=== PATIENT | male | born 1955 | race Hispanic/Latino ===

== ENCOUNTER 2017-09-14 01:08 | Emergency (ER) | payer MEDICARE ==
[~2017-09-14 01:08] MED LIST: AMOX500C2 PO; ASPI-1005 PO; ATOR20TA65 PO; CEPH500C2 PO; CILO50TA PO; FOLI0.8T22 PO; GLIP5TAB11 PO; PHOSLOC PO; SEVE800 PO
[2017-09-14 01:46] LABS: BASOPHILS % (AUTO) 1.7 % (0.0-5.0); EOSINOPHILS % (AUTO) 6.1 % (0.0-8.0); HEMATOCRIT 29.9 % (42-54); LYMPHOCYTES % (AUTO) 19.4 % (21.0-51.0); MEAN CORPUSCULAR HEMOGLOBIN 31.3 pg (27.0-33.0); MEAN CORPUSCULAR HGB CONC 33.7 g/dL (32.0-36.0); MEAN CORPUSCULAR VOLUME 92.9 fL (79-99); MONOCYTES % (AUTO) 10.6 % (3.0-13.0); NEUTROPHILS % (AUTO) 62.2 % (40.0-77.0); NUCLEATED RED BLOOD CELLS 0.1 % (0.0-0.19); PLATELET COUNT (AUTO) 130 K/uL (130-400); RED BLOOD CELL COUNT(AUTO) 3.22 MIL/uL (4.50-6.20); RED CELL DISTRIBUTION WIDTH 14.6 % (11.0-15.5); WHITE BLOOD COUNT (AUTO) 7.4 K/uL (4.8-10.8)
[2017-09-14 01:59] LABS: ALBUMIN 3.5 g/dL (3.5-5.0); BILIRUBIN,TOTAL 0.7 mg/dL (0.2-1.0); POTASSIUM 3.9 mmol/L (3.5-5.1); TOTAL PROTEIN, SERUM 7.5 g/dL (6.0-8.3)
[2017-09-14 02:05] LABS: CREATININE 9.6 mg/dL (0.5-1.5)
[2017-09-14] MEDS ORDERED: CLONIDINE HCL 0.1 MG TABLET ONE (02:33)
== END 2017-09-14 02:25 | disposition home or self-care (01) ==
LOC: EDH 01:08
DX: I12.0 Hypertensive chronic kidney disease with stage 5 chronic kidney disease or end stage renal disease (principal); N18.6 End stage renal disease; E11.22 Type 2 diabetes mellitus with diabetic chronic kidney disease; Z99.2 Dependence on renal dialysis; Z88.8 Allergy status to other drugs, medicaments and biological substances; Z89.421 Acquired absence of other right toe(s)
CPT/HCPCS: 36415; 80053; 82550; 84484; 85025; 93005

== ENCOUNTER 2017-09-19 22:54 | Emergency (ER) | payer MEDICARE ==
[2017-09-19 23:14] LABS: BASOPHILS % (AUTO) 0.9 % (0.0-5.0); EOSINOPHILS % (AUTO) 4.9 % (0.0-8.0); HEMATOCRIT 29.6 % (42-54); LYMPHOCYTES % (AUTO) 19.4 % (21.0-51.0); MEAN CORPUSCULAR HEMOGLOBIN 31.2 pg (27.0-33.0); MEAN CORPUSCULAR HGB CONC 33.5 g/dL (32.0-36.0); MEAN CORPUSCULAR VOLUME 93.1 fL (79-99); NEUTROPHILS % (AUTO) 62.8 % (40.0-77.0); PLATELET COUNT (AUTO) 118 K/uL (130-400); RED BLOOD CELL COUNT(AUTO) 3.18 MIL/uL (4.50-6.20); RED CELL DISTRIBUTION WIDTH 14.7 % (11.0-15.5); WHITE BLOOD COUNT (AUTO) 7.2 K/uL (4.8-10.8)
[2017-09-19 23:23] LABS: POTASSIUM 4.2 mmol/L (3.5-5.1)
[2017-09-19 23:36] LABS: ALBUMIN 3.6 g/dL (3.5-5.0); BILIRUBIN,TOTAL 0.7 mg/dL (0.2-1.0); CREATINE KINASE MB 0.6 ng/mL (0.5-3.6); TOTAL PROTEIN, SERUM 7.3 g/dL (6.0-8.3)
== END 2017-09-20 03:12 | disposition home or self-care (01) ==
LOC: EDH 22:54
DX: E11.22 Type 2 diabetes mellitus with diabetic chronic kidney disease (principal); R00.2 Palpitations; I12.0 Hypertensive chronic kidney disease with stage 5 chronic kidney disease or end stage renal disease; N18.6 End stage renal disease; Z99.2 Dependence on renal dialysis; Z88.8 Allergy status to other drugs, medicaments and biological substances
CPT/HCPCS: 36415; 71045; 80053; 82550; 82553; 84484; 85025; 93005

== ENCOUNTER 2017-10-22 21:59 | Emergency (ER) | payer MEDICARE ==
[2017-10-22] MEDS ORDERED: ONDANSETRON HCL 4 MG/2 ML VIAL ONE (22:25)
[2017-10-22] MEDS ORDERED: ASPIRIN 325 MG TABLET ONE (22:25)
[2017-10-22 22:57] LABS: BASOPHILS % (AUTO) 0.8 % (0.0-5.0); EOSINOPHILS % (AUTO) 3.7 % (0.0-8.0); HEMATOCRIT 28.9 % (42-54); LYMPHOCYTES % (AUTO) 25.5 % (21.0-51.0); MEAN CORPUSCULAR HEMOGLOBIN 30.8 pg (27.0-33.0); MEAN CORPUSCULAR HGB CONC 33.7 g/dL (32.0-36.0); MEAN CORPUSCULAR VOLUME 91.5 fL (79-99); MONOCYTES % (AUTO) 12.8 % (3.0-13.0); NEUTROPHILS % (AUTO) 57.2 % (40.0-77.0); PLATELET COUNT (AUTO) 125 K/uL (130-400); RED BLOOD CELL COUNT(AUTO) 3.15 MIL/uL (4.50-6.20); RED CELL DISTRIBUTION WIDTH 15.2 % (11.0-15.5)
[2017-10-22 23:07] LABS: CREATININE 8.5 mg/dL (0.5-1.5)
[2017-10-22 23:52] LABS: B-TYPE NATRIURETIC PEPTIDE 1860 pg/mL (0-100)
== END 2017-10-23 00:01 | disposition home or self-care (01) ==
LOC: EDH 21:59
DX: I13.2 Hypertensive heart and chronic kidney disease with heart failure and with stage 5 chronic kidney disease, or end stage renal disease (principal); E11.22 Type 2 diabetes mellitus with diabetic chronic kidney disease; N18.6 End stage renal disease; M19.90 Unspecified osteoarthritis, unspecified site; Z98.890 Other specified postprocedural states; Z88.8 Allergy status to other drugs, medicaments and biological substances; Z99.2 Dependence on renal dialysis
CPT/HCPCS: 36415; 71045; 80048; 83880; 84484; 85025; 93005; 96374; 99285; J2405

== ENCOUNTER 2019-08-04 22:36 | Emergency (ER) | payer MEDICARE ==
[2019-08-04] MEDS ORDERED: ASPIRIN 325 MG TABLET ONE (22:51)
[2019-08-04 22:56] LABS: BASOPHILS % (AUTO) 0.3 % (0.0-5.0); HEMATOCRIT 34.4 % (42-54); MEAN CORPUSCULAR HEMOGLOBIN 31.8 pg (27.0-33.0); MEAN CORPUSCULAR HGB CONC 33.1 g/dL (32.0-36.0); MEAN CORPUSCULAR VOLUME 96.1 fL (79-99); MONOCYTES % (AUTO) 12.7 % (3.0-13.0); NEUTROPHILS % (AUTO) 57.7 % (40.0-77.0); PLATELET COUNT (AUTO) 134 K/uL (130-400); RED BLOOD CELL COUNT(AUTO) 3.58 MIL/uL (4.50-6.20); RED CELL DISTRIBUTION WIDTH 12.8 % (11.0-15.5); WHITE BLOOD COUNT (AUTO) 8.8 K/uL (4.8-10.8)
[2019-08-04 23:18] LABS: ALBUMIN 4.3 g/dL (3.5-5.0); BILIRUBIN,TOTAL 0.6 mg/dL (0.2-1.0); POTASSIUM 3.8 mmol/L (3.5-5.1); TOTAL PROTEIN, SERUM 7.8 g/dL (6.0-8.3)
[2019-08-04 23:30] LABS: CREATININE 10.4 mg/dL (0.5-1.5)
== END 2019-08-05 00:19 | disposition home or self-care (01) ==
LOC: EDH 22:36
DX: R07.89 Other chest pain (principal); F41.9 Anxiety disorder, unspecified; R21 Rash and other nonspecific skin eruption; M19.90 Unspecified osteoarthritis, unspecified site; I12.0 Hypertensive chronic kidney disease with stage 5 chronic kidney disease or end stage renal disease; E11.22 Type 2 diabetes mellitus with diabetic chronic kidney disease; N18.6 End stage renal disease; Z88.8 Allergy status to other drugs, medicaments and biological substances; Z99.2 Dependence on renal dialysis
CPT/HCPCS: 36415; 71045; 80053; 84484; 85025; 93005

== ENCOUNTER → 2023-04-20 | Outpatient (CLI) | payer MEDICARE ==
[~2023-04-20] MED LIST changes: -CILO50TA PO; +CILO50TA2 PO
== END | disposition home or self-care (01) ==
LOC: SHCH 14:09
PROVIDERS: ATTEND Internal Medicine Cardiovascular Disease
DX: I73.9 Peripheral vascular disease, unspecified (principal); E78.5 Hyperlipidemia, unspecified; I25.10 Atherosclerotic heart disease of native coronary artery without angina pectoris; I12.0 Hypertensive chronic kidney disease with stage 5 chronic kidney disease or end stage renal disease; N18.6 End stage renal disease; R22.43 Localized swelling, mass and lump, lower limb, bilateral
CPT/HCPCS: 93970

== ENCOUNTER → 2023-06-01 | Outpatient (CLI) | payer MEDICARE ==
[~2023-06-01] MED LIST changes: -GLIP5TAB11 PO; +GLIP5TAB15 PO
[2023-06-01 12:20] LABS: BASOPHILS # (AUTO) 0.04 K/uL (0.00-0.20); EOSINOPHILS # (AUTO) 0.16 K/uL (0.00-0.70); EOSINOPHILS % (AUTO) 4.2 % (0.0-8.0); HEMATOCRIT 33.7 % (42-54); IMMATURE GRANULOCYTE ABSOLUTE 0.01 K/uL (0-1); LYMPHOCYTES # (AUTO) 1.3 K/uL (1.0-4.8); LYMPHOCYTES % (AUTO) 34.8 % (21.0-51.0); MEAN CORPUSCULAR HGB CONC 32.9 g/dL (32.0-36.0); MEAN CORPUSCULAR VOLUME 100.3 fL (79-99); MONOCYTES # (AUTO) 0.6 K/uL (0.1-1.0); MONOCYTES % (AUTO) 16.8 % (3.0-13.0); NEUTROPHILS # (AUTO) 1.6 K/uL (1.8-7.7); NEUTROPHILS % (AUTO) 42.9 % (40.0-77.0); PLATELET COUNT (AUTO) 91 K/uL (130-400); RED BLOOD CELL COUNT(AUTO) 3.36 MIL/uL (4.50-6.20); WHITE BLOOD COUNT (AUTO) 3.8 K/uL (4.8-10.8)
[2023-06-01 12:22] LABS: INR 1.03 (0.85-1.15); PROTHROMBIN TIME 11.9 SEC (9.6-11.6)
[2023-06-01 12:24] LABS: POTASSIUM 3.4 mmol/L (3.5-5.1)
== END | disposition home or self-care (01) ==
LOC: LAB 10:08
PROVIDERS: ATTEND Internal Medicine Cardiovascular Disease
DX: I73.9 Peripheral vascular disease, unspecified (principal); I12.0 Hypertensive chronic kidney disease with stage 5 chronic kidney disease or end stage renal disease; N18.6 End stage renal disease; I87.2 Venous insufficiency (chronic) (peripheral); I87.1 Compression of vein; E78.5 Hyperlipidemia, unspecified; I25.10 Atherosclerotic heart disease of native coronary artery without angina pectoris; R60.9 Edema, unspecified; E66.9 Obesity, unspecified; Z68.31 Body mass index [BMI] 31.0-31.9, adult; Z99.2 Dependence on renal dialysis
CPT/HCPCS: 36415; 80048; 85025; 85610; 85730

== ENCOUNTER → 2023-08-24 | Outpatient (CLI) | payer MEDICARE ==
[2023-08-24 16:41] LABS: BASOPHILS # (AUTO) 0.01 K/uL (0.00-0.20); BASOPHILS % (AUTO) 0.1 % (0.0-5.0); EOSINOPHILS # (AUTO) 0.17 K/uL (0.00-0.70); EOSINOPHILS % (AUTO) 1.6 % (0.0-8.0); HEMATOCRIT 35.1 % (42-54); IMMATURE GRANULOCYTE ABSOLUTE 0.08 K/uL (0-1); LYMPHOCYTES # (AUTO) 1.1 K/uL (1.0-4.8); LYMPHOCYTES % (AUTO) 10.3 % (21.0-51.0); MEAN CORPUSCULAR HEMOGLOBIN 34.1 pg (27.0-33.0); MEAN CORPUSCULAR HGB CONC 33.6 g/dL (32.0-36.0); MEAN CORPUSCULAR VOLUME 101.4 fL (79-99); MONOCYTES # (AUTO) 1.4 K/uL (0.1-1.0); MONOCYTES % (AUTO) 13.2 % (3.0-13.0); NEUTROPHILS # (AUTO) 7.7 K/uL (1.8-7.7); PLATELET COUNT (AUTO) 88 K/uL (130-400); RED BLOOD CELL COUNT(AUTO) 3.46 MIL/uL (4.50-6.20); RED CELL DISTRIBUTION WIDTH 13.4 % (11.0-15.5); WHITE BLOOD COUNT (AUTO) 10.5 K/uL (4.8-10.8)
[2023-08-24 17:01] LABS: INR 0.94 (0.85-1.15)
[2023-08-24 17:02] LABS: PARTIAL THROMBOPLASTIN TIME 25.1 SEC (26.3-35.5)
[2023-08-24 17:03] LABS: CREATININE 5.7 mg/dL (0.5-1.5); POTASSIUM 4.4 mmol/L (3.5-5.1)
== END | disposition home or self-care (01) ==
LOC: LAB 15:40
PROVIDERS: ATTEND Internal Medicine Cardiovascular Disease
DX: I87.1 Compression of vein (principal); I10 Essential (primary) hypertension; I73.9 Peripheral vascular disease, unspecified; E78.5 Hyperlipidemia, unspecified; I25.10 Atherosclerotic heart disease of native coronary artery without angina pectoris; M79.89 Other specified soft tissue disorders
CPT/HCPCS: 36415; 80048; 85025; 85610; 85730

== ENCOUNTER → 2023-11-12 | Outpatient (CLI) | payer MEDICARE ==
[2023-11-12] MEDS: REGADENOSON 0.4 MG/5 ML PF SYG IVP ONE (13:54)
== END | disposition home or self-care (01) ==
LOC: SHCH 07:39
PROVIDERS: ATTEND Internal Medicine Cardiovascular Disease
DX: R07.9 Chest pain, unspecified (principal); R06.09 Other forms of dyspnea; I45.10 Unspecified right bundle-branch block
CPT/HCPCS: 78452; 96374; 93017; J2785; A9500 ×2

== ENCOUNTER → 2024-03-23 | Outpatient (CLI) | payer MEDICARE ==
[~2024-03-23] MED LIST changes: +ACET-2079 PO; -AMOX500C2 PO; -ASPI-1005 PO; -ATOR20TA65 PO; -CEPH500C2 PO; -CILO50TA2 PO; -FOLI0.8T22 PO; +FOLI1TAB85 PO; +FOSF3PAC4 PO; -GLIP5TAB15 PO; +METO-408 PO; +RIVA2.5T PO; +ROSU20TA73 PO; -SEVE800 PO; +[UNRECOGNIZED DRUG - OTHER] PO
== END | disposition home or self-care (01) ==
LOC: SHCH 14:32
PROVIDERS: ATTEND Internal Medicine Cardiovascular Disease
DX: I73.9 Peripheral vascular disease, unspecified (principal)
CPT/HCPCS: 93925

== ENCOUNTER → 2024-04-19 | Outpatient (CLI) | payer MEDICARE | END | disposition home or self-care (01) | LOC: SHCH 09:38 | PROVIDERS: ATTEND Internal Medicine Cardiovascular Disease | DX: I87.2 Venous insufficiency (chronic) (peripheral) (principal) | CPT/HCPCS: 93970 ==

== ENCOUNTER → 2024-06-16 | Outpatient (CLI) | payer MEDICARE ==
[~2024-06-16] MED LIST changes: -ROSU20TA73 PO; +ROSU20TA98 PO
[2024-06-16 12:24] LABS: POTASSIUM 3.8 mmol/L (3.5-5.1)
== END | disposition home or self-care (01) ==
LOC: LAB 09:26
PROVIDERS: ATTEND Internal Medicine Cardiovascular Disease
DX: I10 Essential (primary) hypertension (principal)
CPT/HCPCS: 36415; 80048

== ENCOUNTER → 2024-06-21 | Outpatient (CLI) | payer MEDICARE ==
[~2024-06-21] MED LIST changes: +IOHEXOL 350 MG/ML 100ML INFUS..BTL IV ONE
== END | disposition home or self-care (01) ==
LOC: RAH 10:54
PROVIDERS: ATTEND Internal Medicine Cardiovascular Disease
DX: I25.10 Atherosclerotic heart disease of native coronary artery without angina pectoris (principal); I50.20 Unspecified systolic (congestive) heart failure; I25.5 Ischemic cardiomyopathy
CPT/HCPCS: 75574; Q9967

== ENCOUNTER 2024-10-03 07:04 | Day surgery (SDC) | payer MEDICARE ==
[2024-09-29 13:08] LABS: BASOPHILS # (AUTO) 0.05 K/uL (0.00-0.20); EOSINOPHILS # (AUTO) 0.07 K/uL (0.00-0.70); EOSINOPHILS % (AUTO) 1.4 % (0.0-8.0); HEMATOCRIT 43.8 % (42-54); IMMATURE GRANULOCYTE ABSOLUTE 0.02 K/uL (0-1); LYMPHOCYTES # (AUTO) 0.8 K/uL (1.0-4.8); MEAN CORPUSCULAR HEMOGLOBIN 34.4 pg (27.0-33.0); MEAN CORPUSCULAR HGB CONC 32.4 g/dL (32.0-36.0); MEAN CORPUSCULAR VOLUME 106.1 fL (79-99); MONOCYTES # (AUTO) 0.9 K/uL (0.1-1.0); MONOCYTES % (AUTO) 17.2 % (3.0-13.0); NEUTROPHILS # (AUTO) 3.3 K/uL (1.8-7.7); PLATELET COUNT (AUTO) 79 K/uL (130-400); RED BLOOD CELL COUNT(AUTO) 4.13 MIL/uL (4.50-6.20); RED CELL DISTRIBUTION WIDTH 13.8 % (11.0-15.5); WHITE BLOOD COUNT (AUTO) 5.1 K/uL (4.8-10.8)
[2024-09-29 13:09] VITALS: BP 153/74; PULSE 76; RESP 18; TEMP 98
[2024-09-29 13:19] LABS: INR 1.13 (0.85-1.15); PROTHROMBIN TIME 12.5 SEC (9.6-11.6)
[2024-09-29 13:20] LABS: PARTIAL THROMBOPLASTIN TIME 29.3 SEC (26.3-35.5)
[2024-09-29 13:21] LABS: CREATININE 5.5 mg/dL (0.5-1.3); POTASSIUM 4.1 mmol/L (3.5-5.1)
[2024-09-29 13:44] LABS: B-TYPE NATRIURETIC PEPTIDE 4530 pg/mL (0-100)
--- NOTE | 2024-09-29 17:25 | EKG ---
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
--- NOTE | 2024-10-02 09:29 | NUR ---
REPORT REPORTED PLATELETS/BNP TO MOLLY STALEY NP. OK TO PROCEED
[~2024-10-03] VITALS: Ht 167.6 cm; Wt 88.1 kg
[2024-10-03] VITALS (10 sets, daily range): BP systolic 133–153; BP diastolic 53–79; PULSE 62–74; RESP 16–21; TEMP 97.2–98.2
[~2024-10-03 07:04] MED LIST changes: -ACET-2079 PO; +ASPI-1443 PO; -FOSF3PAC4 PO; -IOHEXOL 350 MG/ML 100ML INFUS..BTL IV ONE; -METO-408 PO; -PHOSLOC PO; -RIVA2.5T PO; -ROSU20TA98 PO; +SUCR500T PO; -[UNRECOGNIZED DRUG - OTHER] PO
--- NOTE | 2024-10-03 08:17 | HMCIMG ---
CHEST 1VW HISTORY: Preop COMPARISON: 02/17/2024 FINDINGS: A frontal projection of the chest was obtained. Mild bilateral pulmonary infiltrates are seen may be related to mild pulmonary vascular congestion with possible superimposed pneumonitis. The heart is borderline enlarged. Degenerative changes are seen. Aortic calcifications are seen. IMPRESSION: 1. Mild bilateral pulmonary infiltrates are seen may be related to mild pulmonary vascular congestion with possible superimposed pneumonitis.
[2024-10-03] MEDS ORDERED: CINA30 PO (08:30)
[2024-10-03] MEDS ORDERED: LACT10SO9 PO (08:30)
[2024-10-03] MEDS: 0.9%NACL 1000ML 1,000 ML IV SCH (08:51)
[2024-10-03] MEDS ORDERED: LIDOCAINE HCL 400MG/20ML VIAL ONE (09:43)
[2024-10-03] MEDS ORDERED: HEParin-NS 1,000 UNIT/500 ML 1,000 ML IV ONE (09:44)
[2024-10-03] MEDS ORDERED: NITROGLYCERIN 50MG VIAL ONE (09:44)
[2024-10-03] MEDS ORDERED: IOHEXOL-350 75 ML VIAL IV ONE (09:44)
--- NOTE | 2024-10-03 10:39 | PRN ---
Cath Procedure Report CATH PROCEDURE REPORT CARDIAC CATHETERIZATION REPORT Date of Service: Oct 03, 2024 After informed consent the patient was prepped and draped in the usual fashion. He received a total of 14 cc of 2% xylocaine in the right inguinal area. A six Dominican sheath was introduced into the right femoral artery using modified Seldinger technique. A six Dominican pigtail catheter was advanced over guidewire to the aortic root. Wire was removed after crossing the aortic valve. Hemodynamics were measured. Left ventricular end-diastolic pressure was 25 mm Hg so no ventriculogram was performed. Pullback with continuous hemodynamic monitoring was performed and catheter was removed. A Rick four right six Dominican diagnostic catheter was advanced over guidewire to the aortic root. Wire was removed and catheter engaged as the [place] right coronary artery. The right coronary artery was visualized multiple planes the catheter was removed. A Rick four left six Dominican diagnostic catheter was advanced over guidewire to the aortic root. Wire was removed and catheter engaged into the left main coronary artery. The left coronary system was visualized multiple planes the catheter was removed. A sheathogram was performed and six Dominican Angio-Seal closure device applied. The entire procedure was well tolerated without complications. Findings: The patient's CT coronary angiogram had suggested a greater than 70% stenosis in the proximal LAD. Catheterization however demonstrated a normal left main coronary artery. Left anterior descending artery is a widely patent vessel extending around the apex of the heart. The diagonal 1st and 2nd are both free of obstruction. The circumflex artery is a nondominant vessel free of obstruction gives rise to two normal obtuse marginal arteries. The right coron shikha artery is a right-dominant vessel free of obstruction. It gives rise to a large posterolateral branch free of obstruction and a moderate-sized posterior descending artery free of obstruction. There was no evidence of aortic stenosis. Summary: Dilated cardiomyopathy with normal coronary arteries. Optimize medical management advised. Plan on repeating echo in 90 days. Report dictated by BRIGITTE Jasmine MD, MD Oct 03, 2024 10:39
[2024-10-03] MEDS ORDERED: METO-408 PO (11:17)
[2024-10-03] MEDS ORDERED: LOSA25TA41 PO (11:18)
== END 2024-10-03 15:00 ==
LOC: DAH 07:04
PROVIDERS: ATTEND Internal Medicine Cardiovascular Disease
DX: R94.39 Abnormal result of other cardiovascular function study (principal); I25.118 Atherosclerotic heart disease of native coronary artery with other forms of angina pectoris; I13.2 Hypertensive heart and chronic kidney disease with heart failure and with stage 5 chronic kidney disease, or end stage renal disease; I50.22 Chronic systolic (congestive) heart failure; N18.6 End stage renal disease; E78.5 Hyperlipidemia, unspecified; I73.9 Peripheral vascular disease, unspecified; R06.09 Other forms of dyspnea; I47.20 Ventricular tachycardia, unspecified; I25.5 Ischemic cardiomyopathy; E66.9 Obesity, unspecified; I87.1 Compression of vein; I87.2 Venous insufficiency (chronic) (peripheral); Z88.8 Allergy status to other drugs, medicaments and biological substances; Z79.82 Long term (current) use of aspirin; Z68.31 Body mass index [BMI] 31.0-31.9, adult; Z79.899 Other long term (current) drug therapy; Z95.820 Peripheral vascular angioplasty status with implants and grafts; Z98.890 Other specified postprocedural states
CPT/HCPCS: 80048; 83880; 85025; 85610; 85730; 36415; 93005; 93458; 71045; C1894; C1760; J3490 ×2; J7030; J1644; Q9967; A4215; A4222; A4221; A4663; A4216; A4606; A4223 ×3

== ENCOUNTER → 2024-11-20 | Outpatient (CLI) | payer MEDICARE ==
[~2024-11-20] MED LIST changes: +CINA30 PO; +LACT10SO9 PO; +LOSA25TA41 PO; +METO-408 PO
--- NOTE | 2024-11-21 08:43 | HMCSR ---
APPROVED REPORT EXAM: Two-dimensional and M-mode echocardiogram with Doppler and color Doppler. INDICATION ICD: I42.0 Dilated cardiomyopathy 2D Dimensions RVDd5.1 cmLVEF(%)22.9 (>50%)LVED Vol(simp.)214.0 mL IVSd1.1 (0.7-1.1cm)FS(%)11 %LVES Vol(simp.)143.0 mL LVDd6.3 (3.8-5.6cm)Ao Root(2D)4.0 (2.0-3.7cm)LVEF(%, simp.)33 % PWd1.2 (0.7-1.1cm)LVOT diam2.5 (1.8-2.4cm)LA ESV INDEX (BP)58.21 mL/m2 LVDs5.6 (2.5-4.0cm)IVC diam2.3 cm Aortic Valve AoV Vmax1.4 m/Stephanie Peak GR8.4 mmHgLVOT Vmax0.8 m/s AoV VTI0.4 mAo Mean GR4.1 mmHgLVOT VTI0.20 m KAUSHIK (VMAX)2.7 cm2Al P1/2T682 msAVA (VTI) 2.7 cm2 Mitral Valve MV E Ahzp542.7 cm/sDECEL Dkrs294 msMV Peak GR6 mmHg MV A Vmax33.7 cm/sP 1/2 T80 msMV Mean GR2 mmHg E/A ratio3.7MVA (PHT)2.8 cm2MVA (VTI)2.1 cm2 MR Max PG91 mmHg TDI E/E' Tkdpfn38.8E/E' Zgjiwon66.4 Pulmonary Valve PV Vmax1.0 m/sPV VTI0.25 mPV Mean GR2 mmHg PV Peak GR4.0 mmHgPI End Leisa. Otto 1.1 cm/s Tricuspid Valve TR Vmax2.6 m/sRAP (EST) 8 ubKrTKZP83.0 mmHg TR Peak GR28.0 mmHg Left Ventricle The left ventricle is mildly dilated. Anterior hypokinesis. There is mild concentric left ventricular hypertrophy. LVEF is 35-40%. Grade 3 diastolic dysfunction. Right Ventricle The right ventricle is moderately dilated. The right ventricular systolic function is normal. Atria The left atrium is severely dilated. The right atrium is severely dilated. Aortic Valve Aortic valve is trileaflet. Aortic valve leaflets are sclerotic but open well. Mild aortic regurgitat ion. There is no aortic valvular stenosis. Mitral Valve The mitral valve is mildly thickened. Mitral annular calcification is mild to moderate. Mitral regurg itation is mild. There is no mitral valve stenosis. Tricuspid Valve The tricuspid valve leaflets appear normal. There is moderate tricuspid regurgitation. Right ventricu lar systolic pressure is estimated at 30-40 mmHg. Pulmonic Valve The pulmonic valve leaflets are thin and pliable; valve motion is normal. There is mild to moderate v alvular regurgitation. Great Vessels Aortic root is mildly dilated. IVC is dilated and collapses >50% with inspiration. Pericardium There is a small loculated posterior pericardial effusion. Conclusion The left ventricle is mildly dilated. There is mild concentric left ventricular hypertrophy. LVEF is 35-40%. Grade 3 diastolic dysfunction. Anterior hypokinesis The right ventricle is moderately dilated. The right ventricular systolic function is normal. Mild aortic regurgitation. Mitral regurgitation is mild. There is moderate tricuspid regurgitation. Right ventricular systolic pressure is estimated at 30-40 mmHg. There is mild to moderate valvular regurgitation. There is a small loculated posterior pericardial effusion.
== END | disposition home or self-care (01) ==
LOC: SHCH 11:34
PROVIDERS: ATTEND Internal Medicine Cardiovascular Disease
DX: I08.8 Other rheumatic multiple valve diseases (principal); I31.39 Other pericardial effusion (noninflammatory); I77.819 Aortic ectasia, unspecified site; I42.0 Dilated cardiomyopathy
CPT/HCPCS: 93306